=== PATIENT | female | born 1975 ===

== ENCOUNTER 2018-03-04 19:38 | Emergency (ER) | payer BC ==
[2018-03-04 19:42] VITALS: RESP 18; O2SAT 100; BMI 26.6
--- NOTE | 2018-03-04 20:14 | ED PDOC ---
Arrival/HPI - General Chief Complaint: Lower Extremity Problem/Injury Time Seen by Provider: 03/04/18 19:45 Historian: Patient - History of Present Illness Narrative History of Present Illness (Text): 03/04/18 20:11 42yo female with no Past medical history who present for left foot pain x one week. Notes pain with weight bearing and ambulation. she did not take any analgesic. Denies trauma, calf pain, redness, swelling, fever, any other complaint. Past Medical History - Provider Review Nursing Documentation Reviewed: Yes - Psychiatric Hx Substance Use: No Family/Social History - Physician Review Nursing Documentation Reviewed: Yes Family/Social History: Unknown Family HX Smoking Status: Never Smoked Hx Alcohol Use: No Hx Substance Use: No Allergies/Home Meds Allergies/Adverse Reactions: Allergies No Known Allergies Allergy (Verified 03/04/18 19:47) Review of Systems - Physician Review All systems were reviewed & negative as marked: Yes - Review of Systems Constitutional: Normal Eyes: Normal ENT: Normal Respiratory: Normal Cardiovascular: Normal Gastrointestinal: Normal Genitourinary Female: Normal Musculoskeletal: Arthralgias (Left foot pain) Skin: Normal Neurological: Normal Endocrine: Normal Hemo/Lymphatic: Normal Psychiatric: Normal Physical Exam Vital Signs Reviewed: Yes Vital Signs Temp Pulse Resp BP Pulse Ox 03/04/18 22:02 98.1 F 80 18 113/68 100 03/04/18 21:52 98.1 F 80 18 113/68 100 03/04/18 19:40 98.2 F 84 18 152/74 H 100 Temperature: Afebrile Blood Pressure: Normal Pulse: Regular Respiratory Rate: Normal Appearance: Positive for: Well-Appearing, Non-Toxic, Comfortable Pain Distress: None Mental Status: Positive for: Alert and Oriented X 3 - Systems Exam Head: Present: Atraumatic, Normocephalic Pupils: Present: PERRL Extroacular Muscles: Present: EOMI Conjunctiva: Present: Normal Mouth: Present: Moist Mucous Membranes Neck: Present: Normal Range of Motion Respiratory/Chest: Present: Clear to Auscultation, Good Air Exchange. No: Respiratory Distress, Accessory Muscle Use Cardiovascular: Present: Regular Rate and Rhythm, Normal S1, S2. No: Murmurs Abdomen: No: Tenderness, Distention, Peritoneal Signs Back: Present: Normal Inspection Upper Extremity: Present: Normal Inspection. No: Cyanosis, Edema Lower Extremity: Present: NORMAL PULSES, Normal ROM, Tenderness (Distal left dorsal foot), Neurovascularly Intact. No: Edema, CALF TENDERNESS, Lisa's Sign , Swelling, Erythema, Temperature Abnormalties Neurological: Present: GCS=15, CN II-XII Intact, Speech Normal Skin: Present: Warm, Dry, Normal Color. No: Rashes Psychiatric: Present: Alert, Oriented x 3, Normal Insight, Normal Concentration Medical Decision Making ED Course and Treatment: 03/04/18 23:23 Left foot xray - heel spur noted. No acute fracture Result was DW the pt. Stiven wrap and ortho shoe given. Referred to round kiln drawer. ibuprofen rx given. - RAD Interpretation Radiology Orders: 03/04/18 20:03 FOOT LEFT 3 VIEWS ROUTINE [RAD] Stat - Medication Orders Current Medication Orders: Discontinued Medications Ketorolac Tromethamine (Toradol) 60 mg IM STAT STA Stop: 03/04/18 20:11 Last Admin: 03/04/18 21:07 Dose: 60 mg MAR Pain Assessment Document 03/04/18 21:07 OCS (Rec[facility] 03[facility]04[facility]18 21:08 [id number] Pain Reassessment Is this a pain reassessment? No Sleep Is patient sleeping during reassessment? No Presence of Pain Presence of Pain No Pain Scale Used Pain Scale Used Numeric Location Left, Right or Bilateral Left Pain Location Body Site Foot Description Description Constant Intensity of Pain at present 8 Aggravating Factors ADL's IM Administration Charges Document 03/04/18 21:07 OCS (Rec: 03/04/18 21:08 [id number] Injection Site MAR Injection Site Left Arm Charges for Administration # of IM Administrations 1 Disposition/Present on Arrival - Present on Arrival Any Indicators Present on Arrival: No History of DVT/PE: No History of Uncontrolled Diabetes: No Urinary Catheter: No History of Decub. Ulcer: No History Surgical Site Infection Following: None - Disposition Have Diagnosis and Disposition been Completed?: Yes Diagnosis: Foot pain Disposition: HOME/ ROUTINE Disposition Time: 21:45 Patient Plan: Discharge Condition: STABLE Discharge Instructions (ExitCare): Heel Pain (Caused by Plantar Fasciitis) (DC) , Muscle and Bone Pain (DC) Additional Instructions: Follow up with a round kiln drawer Return to emergency department for any new symptoms Prescriptions: Ibuprofen [Motrin Tab] 600 mg PO Q6 #15 tab Referrals: Jim Mederos DPM [[facility]] - Follow up with primary Forms: [employer] (Chinese), WORK NOTE
[2018-03-04 21:53] VITALS: BP 113/68; PULSE 80; TEMP 98.1
--- NOTE | 2018-03-05 08:49 | RAD ---
Date of service: 03/04/2018 PROCEDURE: Left Foot Radiographs. HISTORY: Foot pain COMPARISON: None. FINDINGS: BONES: There are acute nondisplaced fracture in the distal shaft of the 3rd metatarsal. Bone alignment is normal. There is diffuse bone demineralization. There is a prominent plantar calcaneal spur. JOINTS: Normal. SOFT TISSUES: There is moderate dorsal soft tissue swelling. OTHER FINDINGS: None. IMPRESSION: Acute nondisplaced fracture in the distal shaft of the 3rd metatarsal and moderate dorsal soft tissue swelling.
== END 2018-03-04 22:02 | disposition home or self-care (01) ==
LOC: ED 19:38
DX: M79.672 Pain in left foot (principal)
CPT/HCPCS: 73630; 96372; 99284; J1885